=== PATIENT | male | born 1945 | race Asian ===

== ENCOUNTER 2022-03-29 17:52 | Emergency (ER) | payer OTHER ==
[~2022-03-29] VITALS: Ht 172.7 cm; Wt 99.8 kg
[2022-03-29 17:55] VITALS: BP 157/74; TEMP 98.1
[2022-03-29 18:12] LABS: PLATELET COUNT 155 K/uL (142-355)
[2022-03-29 18:21] LABS: POTASSIUM 3.4 mmol/L (3.6-5.2)
[2022-03-29] MEDS ORDERED: ASPIRIN 81 LOW81 MG PO (22:56)
[2022-03-29] MEDS ORDERED: LIPITOR20 MG PO (22:57)
[2022-03-29] MEDS ORDERED: JANTOVEN6 MG PO (23:01)
[2022-03-29] MEDS ORDERED: DULOXETINE HYDR60 MG PO (23:02)
[2022-03-29] MEDS ORDERED: GLIPIZIDE 5 MG PO (23:04)
[2022-03-29] MEDS ORDERED: FUROSEMIDE20 MG PO (23:06)
[2022-03-29] MEDS ORDERED: FUROSEMIDE40 MG PO (23:07)
[2022-03-29] MEDS ORDERED: INSUINJ8 SC (23:08)
[2022-03-29] MEDS ORDERED: LISI5TAB10 PO (23:09)
[2022-03-29] MEDS ORDERED: OMEPRAZOLE40 MG PO (23:10)
[2022-03-29] MEDS ORDERED: PIOGLITAZONE HY30 MG PO (23:11)
[2022-03-29] MEDS ORDERED: TRAZODONE HYDRO50 MG PO (23:12)
[2022-03-29] MEDS ORDERED: BUDESONIDE0.5 MG/2 M INH (23:13)
[2022-03-29] MEDS ORDERED: BUSPIRONE HYDR7.5 MG PO (23:14)
[2022-03-29] MEDS ORDERED: POTASSIUM CHLO10 ME1 PO (23:16)
[2022-03-29] MEDS ORDERED: DICYCLOMINE HYD10 MG PO (23:17)
[2022-03-29] MEDS ORDERED: ARTISOL20 OPTH (23:18)
[2022-03-29] MEDS ORDERED: GLUCAGON1 MG IM (23:19)
[2022-03-29] MEDS ORDERED: ALBUSOL INH (23:20)
[2022-03-29] MEDS ORDERED: TRAMADOL HYDROC50 MG PO (23:23)
== END 2022-03-29 18:59 | disposition still patient (30) ==
LOC: ED 17:52
PROVIDERS: Emergency Medicine Emergency Medical Services
DX: F33.8 Other recurrent depressive disorders (principal); Z11.52 Encounter for screening for COVID-19; Z04.6 Encounter for general psychiatric examination, requested by authority
CPT/HCPCS: 80053; 81002; 81015; 85027; 87635; 93005; 99283; U0003